=== PATIENT | male | born 1970 | race Caucasian/White ===

== ENCOUNTER 2016-10-23 17:59 | Emergency (ER) | payer OTHER ==
[~2016-10-23 17:59] MED LIST: NEXIUM40 MG PO
== END 2016-10-23 19:25 | disposition home or self-care (01) ==
LOC: FER 17:59
DX: S29.011A Strain of muscle and tendon of front wall of thorax, initial encounter (principal); K21.9 Gastro-esophageal reflux disease without esophagitis; Z79.899 Other long term (current) drug therapy; X50.1XXA Overexertion from prolonged static or awkward postures, initial encounter
CPT/HCPCS: 71020; 71100; 94640; 94664; J1885

== ENCOUNTER 2022-01-12 00:11 | Emergency (ER) | payer OTHER ==
[~2022-01-12 00:11] MED LIST changes: +AUGMENTIN 875-1 EACH PO; +NORCO 5-325 TA1 EACH PO; +TAMSULOSIN HCL0.4 MG PO; +VENTOLIN HFA IN18 GM INH
[2022-01-12 00:59] LABS: BASOPHIL 0.3 % (0-2); EOSINOPHIL 0.5 % (0-5); HCT 44.4 % (42.0-52.0); HGB 15.5 g/dl (13.2-18.0); LYMPHOCYTE 9.6 % (15-48); MCHC 34.9 g/dL (32.0-36.0); MCV 88.8 fL (78.0-100.0); MONOCYTE 6.2 % (0-12); MPV 9.2 fL (6.0-9.5); NRBC 0; PLT 330 K/uL (150-400); RDW 12.8 % (11.5-14.0)
[2022-01-12 01:08] LABS: BILIRUBIN 1+ mg/dL (NEGATIVE); BLOOD NEGATIVE Ery/uL (NEGATIVE); CLARITY CLEAR (CLEAR); COLOR YELLOW (YELLOW); GLUCOSE (U) NORMAL (NORMAL); LEUKOCYTES NEGATIVE Leu/uL (NEGATIVE); NITRITE NEGATIVE (NEGATIVE); PROTEIN NEGATIVE (NEGATIVE); SPECIFIC GRAVITY >=1.030 (1.001-1.030); UROBILINOGEN 0.2 mg/dL (0.2-1.0)
[2022-01-12 01:17] LABS: ALBUMIN 4.7 g/dL (3.4-5.0); BILIRUBIN - TOTAL 0.7 mg/dL (0.2-1.0); BUN/CREAT RATIO (CALC) 18.2 RATIO; CREATININE 1.76 mg/dL (0.67-1.17); GLOBULIN (CALCULATION) 3.8 g/dL; POTASSIUM 4.3 mmol/L (3.5-5.1); TOTAL PROTEIN 8.5 g/dL (6.4-8.2)
[2022-01-12] MEDS ORDERED: CYCLOBENZAPRINE10 MG PO (02:44)
== END 2022-01-12 03:00 | disposition home or self-care (01) ==
LOC: FER 00:11
PROVIDERS: Internal Medicine
DX: E86.0 Dehydration (principal); K52.9 Noninfective gastroenteritis and colitis, unspecified; N17.9 Acute kidney failure, unspecified
CPT/HCPCS: 36415; 80053; 81003; 82550; 85025; J2060; J3475; J7120